=== PATIENT | male | born 1930 | race Caucasian/White ===

== ENCOUNTER 2019-02-05 14:59 | Emergency (ER) | payer OTHER ==
[~2019-02-05] VITALS: Ht 175.3 cm; Wt 81.6 kg
[2019-02-05] MEDS ORDERED: THIAMINE 100mg/ml INJ (200mg/2ml VIAL) IV ONE (15:15)
[2019-02-05] MEDS ORDERED: SODIUM CHLORIDE 0.9% 1,000 ML IV ONE (15:15)
[2019-02-05 15:52] LABS: Basophils # (auto) 0 uL; Basophils % (auto) 0.6 % (0.0-2.0); Eosinophils # (auto) 0.1 uL; Eosinophils % (auto) 1.8 % (0.0-7.0); Hematocrit 49.6 % (41.0-53.0); Hemoglobin 16.5 g/dL (13.5-17.5); Lymphocytes % (auto) 13.8 % (10.0-50.0); Mean Corpuscular Hemoglobin 31.6 pg (28.0-32.0); Mean Corpuscular Hgb Conc. 33.3 g/dL (32.0-36.0); Mean Corpuscular Volume 94.7 fL (80.0-100.0); Monocytes # (auto) 1.2 uL; Neutrophils # (auto) 5.1 uL; Neutrophils % (auto) 67.8 % (37.0-80.0); Nucleated Red Blood Cells % 0.2 %; Platelet Count (auto) 150 10^3/uL (140-450); Red Blood Cells 5.24 10^6/uL (4.5-5.90); Red Cell Distribution Width 14.5 % (11.8-14.3); White Blood Cell 7.5 10^3/uL (4.4-10.8)
[2019-02-05 16:01] LABS: Alanine Aminotransferase 37 U/L (16-61); Albumin 3.5 g/dL (3.4-5.0); Aspartate Aminotransferase 28 U/L (15-37); Blood Urea Nitrogen 23 mg/dL (7-18); Calcium 8.2 mg/dL (8.5-10.1); Carbon Dioxide 24 mmol/L (21-32); Glucose 93 mg/dL (74-106); Magnesium 2.2 mg/dL (1.6-2.6)
[2019-02-05 16:03] LABS: BUN/Creatinine Ratio 16.3; GFR African American 61 mL/min; GFR Non-African American 50 mL/min
[2019-02-05 16:06] LABS: Alkaline Phosphatase 107 U/L (45-117); Anion Gap 12 (5-15); Bilirubin, Total 1.1 mg/dL (0.2-1.0); Chloride 105 mmol/L (98-107); Potassium 4.2 mmol/L (3.5-5.1); Sodium 141 mmol/L (136-145); Total Protein 6.9 g/dL (6.4-8.2)
[2019-02-05] MEDS ORDERED: AZITHROMYCIN 500MG/ 250ML 250 ML IV ONE (16:45)
[2019-02-05] MEDS ORDERED: cefTRIAXone 1GM/50ML D5W 50 ML IV ONE (16:45)
[2019-02-05 18:02] VITALS: BP 99/63
== END 2019-02-05 18:28 | disposition home or self-care (01) ==
LOC: EDBD 14:59 → ER 15:07
DX: R55 Syncope and collapse (principal); J18.9 Pneumonia, unspecified organism; I10 Essential (primary) hypertension; Z90.49 Acquired absence of other specified parts of digestive tract
CPT/HCPCS: 36415; 70450; 71045; 80053; 80320; 83735; 84484; 85025; 93005; 94761; 96361; 96365; 96368; 96375; 99284; J0456; J0696; J3411; J7030